=== PATIENT | male | born 1950 | race Caucasian/White ===

== ENCOUNTER → 2016-10-22 | Day surgery (SDC) | payer BC ==
[~2016-10-22] MED LIST: CHOLESTEROL PILL; CLARITIN10 M2 PO; HYDROCHLOROTHIA25 MG PO; KEFLEX500 MG PO; PRINIVIL5 MG PO; SIMVASTATIN40 MG PO
--- NOTE | ~2016-10-22 | OR ---
Unit #: [id number] #: [id number] Patient: ABIGAIL WHITAKER [id number] [address] [address] [id number] O MR#: [id number] NAME: ABIGAIL WHITAKER ROOM: Date of Procedure: 10/22/2016 Admission Date: 10/22/2016 Surgeon: Manohar Siddiqui M.D. : 1950 Attending Physician: Manohar Siddiqui M.D. Primary Care Physician: Justice Patterson M.D. PROCEDURE OPERATIVE NOTE PREOPERATIVE DIAGNOSIS Colorectal cancer screening in an average risk patient. PROCEDURE Colonoscopy and polypectomy. POSTOPERATIVE DIAGNOSES 1. Patient has two sessile polyps, the largest of these was about 8 mm in size in the proximal descending colon and second polyp was in the rectum about 3 to 4 mm in size. Both the polyps were removed using snare polypectomy. 2. Mild sigmoid and descending colon diverticulosis. 3. Small internal hemorrhoids. 4. Rest of examination up to cecum and terminal ileum was normal. The quality of the prep was excellent. RECOMMENDATIONS Followup the results of polyp histology and repeat colonoscopy in five years. SEDATION USED MAC. PROCEDURE DESCRIPTION Following detailed explanation of potential risks and complications of a colonoscopy namely perforation, bleeding, and complication related to sedation, the patient was brought to GI lab and laid in the left lateral decubitus position. A digital rectal examination was performed, which was normal. Lubricated tip of the Olympus video colonoscope was inserted through the anus and advanced under direct vision. The scope was advanced past rectosigmoid into descending colon. Multiple medium-sized diverticula were seen in this area. The scope was then navigated all the way up to cecum with visualization of the ileocecal valve and the appendiceal orifice. Preparation was excellent with good visualization and photodocumentation was obtained. Last few inches of the terminal ileum were also visualized after intubation of the ileocecal valve and appeared normal. Successive segments of the colonic mucosa were examined upon withdrawal. The patient was noted to have a single sessile polyp about 8 mm in size in the proximal descending colon. The latter was removed using snare polypectomy. It was retrieved and sent for histology. Excellent hemostasis was achieved and photo documentation was obtained. A second smaller 3 mm polyp was seen in the rectum. It was also removed using snare polypectomy. Both the polyps were retrieved and sent for Unit #: [id number] #: [id number] Patient: ABIGAIL WHITAKER histology. No additional polyps noted. Other than the left-sided diverticula, the patient was also noted to have small internal hemorrhoids at the anal verge. The scope was withdrawn. The patient returned to the recovery area. He tolerated the procedure without any post procedure complications. Dictated by... Esthela Card TD: 10/22/2016 11:05 JOB #: [id number] PROCEDURE OPERATIVE NOTE Page 1 of 1 X Manohar Siddiqui MD X PROCEDURE OPERATIVE NOTE
== END | disposition home or self-care (01) ==
LOC: COPS 07:02
DX: Z12.11 Encounter for screening for malignant neoplasm of colon (principal); K63.5 Polyp of colon; K62.1 Rectal polyp; K57.30 Diverticulosis of large intestine without perforation or abscess without bleeding; K64.8 Other hemorrhoids; I10 Essential (primary) hypertension; E78.5 Hyperlipidemia, unspecified; F17.210 Nicotine dependence, cigarettes, uncomplicated; Z79.899 Other long term (current) drug therapy
CPT/HCPCS: 88305; J2250